=== PATIENT | male | born 1970 | race Caucasian/White ===

== ENCOUNTER 2020-04-18 10:36 | Emergency (ER) | payer OTHER ==
[~2020-04-18] VITALS: Ht 180.3 cm; Wt 79.4 kg
[2020-04-18 11:04] VITALS: BP 137/78
--- NOTE | 2020-04-18 11:45 | NUR ---
covid 19 swab collected and sent to lab
--- NOTE | 2020-04-18 11:47 | NUR ---
Patient discharged to home in stable condition. Written and verbal after care instructions given. Patient verbalizes understanding of instruction.
== END 2020-04-18 11:47 | disposition home or self-care (01) ==
LOC: ER 10:43
DX: U07.1 COVID-19 (principal)
CPT/HCPCS: 99283; C9803; U0003